=== PATIENT | female | born 1970 | race Caucasian/White ===

== ENCOUNTER 2020-05-07 13:12 | Outpatient (CLI) | payer BC, SELFPAY ==
--- NOTE | 2020-05-07 13:19 | MM_ITS ---
WS: [id number] DIAGNOSTIC BILATERAL DIGITAL MAMMOGRAM WITH CAD HISTORY: LT BREAST CALCIFICATION COMPARISON: 08/10/2018 and 10/05/2017 TECHNIQUE: Bilateral craniocaudad, mediolateral oblique, and mediolateral views are submitted. Magnif ication views LEFT CC and MLO. Computer aided detection utilized. Breast composition: The breasts are heterogeneously dense, which may obscure small masses. Calcificat ions in the posterior central LEFT breast actually decreased in size and number. These may be resolvi ng calcifications. There are no suspicious calcifications within either breast or distortion. MM/[id number] IMPRESSION: BI-RADS: 2-Benign FOLLOW UP: 1 Year Follow-up
== END 2020-05-07 13:13 | disposition home or self-care (01) ==
LOC: RAD 13:16
PROVIDERS: PCP Family Medicine; Visit Provider Nurse Practitioner Family
DX: R92.1 Mammographic calcification found on diagnostic imaging of breast (principal)
CPT/HCPCS: 77066

== ENCOUNTER 2021-11-15 12:37 | Outpatient (CLI) | payer MEDICAID, SELFPAY ==
--- NOTE | 2021-11-15 12:51 | MM_ITS ---
WS: [id number] BILATERAL SCREENING DIGITAL BREAST TOMOSYNTHESIS MAMMOGRAM WITH CAD HISTORY: SCREEN COMPARISON: 05/07/2020, 08/10/2018 and 10/05/2017 Bilateral CC and MLO views with tomosynthesis and synthetic mammography submitted. Computer aided det ection analyzed. Breast composition: The breasts are heterogeneously dense, which may obscure small masses. No suspici ous masses, microcalcifications or architectural distortion. Asymmetries and calcifications. No inter olvin change since 2018. MM/[place] [id number] IMPRESSION: BI-RADS: 2-Benign FOLLOW UP: 1 Year Follow-up
== END 2021-11-15 12:38 | disposition home or self-care (01) ==
PROVIDERS: PCP Family Medicine; Visit Provider Family Medicine
DX: Z12.31 Encounter for screening mammogram for malignant neoplasm of breast (principal)
CPT/HCPCS: 77063; 77067

== ENCOUNTER 2023-01-06 12:56 | Outpatient (CLI) | payer MEDICAID, SELFPAY ==
--- NOTE | 2023-01-06 | MM_ITS ---
WS: [id number] BILATERAL 3D TOMOSYNTHESIS DIGITAL SCREENING MAMMOGRAPHY WITH CAD CLINICAL INFORMATION: SCREENING HISTORY: Screening mammogram. No current complaints. COMPARISON: 2021 TECHNIQUE: Bilateral CC and MLO views. FINDINGS: The breasts are composed of heterogeneous fibroglandular density tissue, which can limit the detectio n of small underlying mass lesions. No suspicious mass, asymmetry, calcifications, or architectural d istortion. No evidence of malignancy. Punctate calcifications LEFT breast. MM/[place] [id number] IMPRESSION: BI-RADS: 2-Benign FOLLOW UP: 1 Year Follow-up Recommend return to annual screening mammography.
== END 2023-01-06 12:57 | disposition home or self-care (01) ==
LOC: MOBLMAM 12:57 → RAD 13:05
PROVIDERS: PCP Family Medicine; Visit Provider Family Medicine
DX: Z12.31 Encounter for screening mammogram for malignant neoplasm of breast (principal)
CPT/HCPCS: 77063; 77067

== ENCOUNTER 2024-10-31 07:53 | Day surgery (SDC) | payer MEDICAID, SELFPAY ==
[2024-10-31] VITALS (8 sets, daily range): BP systolic 108–150; BP diastolic 68–90; PULSE 75–88; RESP 14–18; TEMP 36.1–36.3; O2SAT 95–99; BMI 19.7
--- NOTE | 2024-10-31 07:58 | SC_ITS ---
WS: [id number] C-ARM RADIOGRAPHS CHEST; 2 IMAGES HISTORY: port-a-cath placement COMPARISON: None available. Intraoperative imaging during Port-A-Cath placement. RIGHT subclavian Port-A-Cath identified with tip terminating at the caval atrial junction. SC/C-arm FL for CVA [id number] IMPRESSION: Intraoperative imaging during RIGHT Port-A-Cath placement.
--- NOTE | 2024-10-31 08:13 | P.HPUD_ITS ---
Surgery/Procedure H&P Update DATE OF PROCEDURE: October 31, 2024 DATE H&P PERFORMED: 10/26/24 H&P UPDATE INFORMATION: I have reviewed H&P completed within last 30 days, I have examined patient prior to procedure, No changes to prior documentation, H&P is in [facility] EMR on date indicated and Risks and benefits of the procedure reviewed PLANNED PROCEDURE: Operation Date: 10/31/24 09:30 Proposed Procedures p Portacath Placement 45139, C34.91(Not Applicable) - Fidencio Bello MD
[2024-10-31] MEDS: sodium chloride 0.9% 1,000 ML 30 ML IV (08:25)
[2024-10-31] MEDS: sodium chloride 0.9% 500 ML 999 ML IV (08:28)
--- NOTE | 2024-10-31 09:44 | ANES.PREANE2 ---
Pre-Anesthetic Assessment Height/Weight: Height 1.52 m Weight 45.813 kg Temp Pulse Resp BP Pulse Ox O2 Del Method 97.2 F L 88 18 110/68 99 Room Air 10/31/24 08:07 10/31/24 08:07 10/31/24 08:07 10/31/24 08:07 10/31/24 08:07 10/31/24 08:07 Operation Date: 10/31/24 09:30 Proposed Procedures p Portacath Placement 80334, C34.91(Not Applicable) - Fidencio Bello MD Last intake: Intake Last Liquid Date 10/30/24 Last Liquid Time 23:00 Last Solid Date 10/30/24 Last Solid Time 21:00 Social Tobacco and No alcohol Exam alert, oriented x 3 and regular rate & rhythm scattered b/l exp wheezing with post tussive clearing Airway Submandibular: within normal limits Cervical ROM: within normal limits Mallampati: Class II Pulmonary Chronic Obstructive Pulmonary Disease, Cough, Exertional Dyspnea and Shortness of Breath Right lung CA Anesthetic Plan ASA status: 3 Anesthesia: MAC Medications/Allergies Home Medications ?Medication ?Instructions ?Recorded ?Confirmed ?Last Taken ?Type albuterol sulfate 90 mcg/actuation 1 puff inhalation DAILY 10/24/24 10/31/24 10/31/24 History aerosol inhaler (Ventolin HFA) alprazolam 0.5 mg tablet 0.5 mg PO DAILY 10/24/24 10/31/24 10/31/24 History budesonide-formoterol HFA 160 1 inh inhalation BID 10/24/24 10/31/24 10/31/24 History mcg-4.5 mcg/actuation aerosol inhaler (Symbicort) naloxone 4 mg/actuation nasal 4 mg intranasal PRN PRN OVERDOSE 10/24/24 10/31/24 Unknown History spray (Narcan) omeprazole 40 mg capsule,delayed 40 mg PO DAILY 10/24/24 10/31/24 10/30/24 History release prochlorperazine maleate 10 mg 10 mg PO Q4H PRN mild nausea #30 10/24/24 10/31/24 Unknown Rx tablet (Compazine) tabs tramadol 50 mg tablet 50 mg PO DAILY 10/24/24 10/31/24 10/30/24 History Allergies Allergy/AdvReac Type Severity Reaction Status Date / Time No Known Drug Allergies Allergy Unknown Unknown Verified 10/31/24 08:05 Current Medications Generic Name Dose Route Start Last Admin Trade Name Freq PRN Reason Stop Dose Admin Sodium Chloride 1,000 mls @ 30 mls/hr 10/31/24 06:30 10/31/24 08:25 Sodium Chloride 0.9% IV 11/01/24 06:29 30 mls/hr .Q24H AMINAH Administration PFSH Anesthesia Social History Smoking and tobacco/nicotine status: current every day tobacco/nicotine user
[2024-10-31] MEDS: ceFAZolin 2,000 mg SDV 2000 MG IVP (10:11)
[2024-10-31] MEDS: lidocaine-epi 1% 20 mL INJ 10 ML INJECTION (10:53)
[2024-10-31] MEDS: heparin, porcine 1,000 unit/mL INJ 10 mL 6000 UNIT IRRIGATION (10:55)
[2024-10-31] MEDS: BUPivacaine 0.25% INJ 10 mL INJECTION (10:55)
--- NOTE | 2024-10-31 11:08 | P.OP_ITS ---
Operative Report Date of procedure: October 31, 2024 Pre-op diagnosis: Lung cancer Post-op diagnosis: Same Post-op findings: Normal vascular anatomy on the right neck Procedure done: Insertion of right IJ Port-A-Cath Implants: Bard port a cath Surgeon: Fidencio Bello MD Site Medical Director: BERT[facility] OR Staff Estimated blood loss: 5 Brief History: 4-year-old female with history of lung cancer who requires chemotherapy after discussion we will resume benefits with side to proceed with Port-A-Cath placem ent. Procedure: Patient was brought into the OR, she was placed in a supine position, monitored anesthesia sedation was given. Timeout was conducted after the skin was prepped and draped in the usual sterile fashion. I then proceeded to identify the right IJ vein with ultrasound, I infiltrated local anesthesia on top of the vein. I then proceeded to cannulate the vein under direct ultrasound guidance using an 18-gauge needle, the needle tip was seen entering the vein and immediate return of blood was noted. A wire was advanced through the needle and the needle was removed. The position of the wire was verified with ultrasound and fluoroscopy. The wire was then fixed to the drapes. I then placed my attention to the chest, local anesthesia was infiltrated in the previously marked area on the chest and then a tract connecting the chest to the wire insertion site in the neck. I then proceeded to make a 3.5 cm incision in the right upper chest, the incision was deepened to subcutaneous tissue with electrocautery and electrocautery was used to create the subcutaneous pocket to house the Port-A-Cath. I then proceeded to use a hemostat to create a tunnel from the chest wound to the neck. I then proceeded to make a 0.5 cm incision at the level of the wire insertion site in the neck. Hemostasis was verified. I then placed the Port-A-Cath in the pocket and tunneled the catheter using the provided tunneler. The catheter was cut to appropriate length under fluoroscopy guidance and then flushed. I then proceeded to insert an introducer with a peel-off sheath over the wire under direct fluoroscopic guidance. I then remove the wire and the introducer leaving the peel-off sheath in place. The catheter was then advanced through the peel-off sheath and the peel-off sheath was removed leaving the catheter in place. Fluoroscopy showed evidence of Adequate catheter position. I then proceeded to access the port; the port was retrieving blood and flushing fine, I then hep-locked the catheter. Hemostasis was verified. The wound was closed in layers using #3-0 Vicryl for the subcutaneous tissue and #4 Monocryl for the skin. Dermabond was applied. At the end of the procedure all counts were correct. The patient tolerated well the procedure and was transferred to the PACU in stable condition.
[2024-10-31] MEDS: oxyCODONE 5 mg IR Tab/Cap PO (11:51)
--- NOTE | 2024-10-31 12:37 | ANE.PACU2 ---
Inpatient post-anesthesia follow up: Airway intact: Yes Vital signs: Temperature 97.4 F Pulse Rate 76 Respiratory Rate 18 Blood Pressure 135/81 Pulse Oximetry 96 Oxygen Delivery Me thod Room Air Oxygen Flow Rate Fraction of Inspir ed Oxygen Hydration adequate: Yes Nausea and vomiting: No Pain level: controlled Mental status: Baseline
== END 2024-10-31 12:08 | disposition home or self-care (01) ==
PROVIDERS: PCP Family Medicine; Visit Provider Surgery
PROC: (CPT 36561; principal; 2024-10-31 09:20)
DX: C34.91 Malignant neoplasm of unspecified part of right bronchus or lung (principal); J44.9 Chronic obstructive pulmonary disease, unspecified; F17.200 Nicotine dependence, unspecified, uncomplicated; Z79.899 Other long term (current) drug therapy
CPT/HCPCS: 36561; 76000; 77001; C1788; J0690; J1644; J2250; J2704; J3010; J3490; J7030; J7040; J9999

== ENCOUNTER 2024-11-18 11:09 | Oncology outpatient (recurring) (ONCR) | payer MEDICAID, SELFPAY ==
--- NOTE | 2024-11-02 15:27 | N.ONRAD NP_ITS ---
Radiation Oncology New Patient Visit Patient: Aline Barba MR#: [id number] : 1970 Age: 54 Sex: Female Dictated by: Eduin Ferreira DO/LEANN/BETO Date of Service: 11/02/2024 Referring Physician(s) : DR. 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 STAGE: IIIA-T2N2M0 ICD-10: C34.11, C77.1 Chief Complaint / History of Present Illness: This is a pleasant 54-year-old female who is a longtime smoker but in relatively good health. 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 She noted increasing cough for greater than 8 weeks and was treated with courses of antibiotics with some improvement. Her cough persisted so she underwent CT of the chest on 08/08/2024 which showed no evident lymphadenopathy but proximal RUL bronco occlusive disease in the central region. This most likely was primarily a bronchogenic neoplasm with complete associated postobstructive RUL atelectasis. She underwent EBUS bronchoscopy on 09/09/[address] TEJADA and this showed right mainstem//bronchus intermedius endobronchial mass like lesion as well as abnormal mucosal constricted narrowing. Mass was very back vascular and bleeding profusely. Biopsy returned SCC of 4 as well is endobronchial biopsy positive disease Patient clinically STG IIIa--T2 N2 M0 Current Medications: albuterol sulfate 90 mcg/actuation (Ventolin HFA) inhalation alprazolam mg PO benzonatate mg PO budesonide-formoterol 160-4.5 mcg/actuation (Symbicort) inhalation naloxone 4 mg/actuation (Narcan) intranasal omeprazole mg PO tramadol mg PO Allergies: No Known Drug Allergies Allergy (Unknown, Verified 10/24/24 13:06) Unknown Medical History: No history of collagen vascular disease. No previous radiation therapy. Surgical History: Port on 10/31/24 Family History: Father of lung cancer and had distant colon CA, mother had breast cancer and did not of that disease. Social History: Smoking and tobacco/nicotine status: current every day tobacco/nicotine user. She [place] with her animals and gardens. 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 Current Complaints / Review of Systems: As above Vital Signs: Performed on 11/02/2024 12:39 PM BMI - 19.803 kg/m2, Height - 60 in, Weight - 101.4 lbs, Temperature - 96.9 f, Pulse - 93 /min, Respiration - 17 /min, O2 Sat - 100 %, Pain - 0, Fatigue - 0 and BP - 134/ 89 mm(hg). Physical Exam:AAOX3. HEAD WNL NECK SUPPLE NO LYMPADENOPATHY CHEST: Right-sided port that does not appear infected. LUNGS: No intercostal retraction. Abdomen soft nontender with no hepatosplenomegaly. Extremity: Intact x 4. No clubbing appreciated. Vertebral exam: No bony tenderness Performance Status: KPS 90 Pathology: Primary, c34.11 - malignant neoplasm of upper lobe, right bronchus or lung, Diagnosed 09/09/2024 (active) and Primary, c77.1 - secondary and unspecified malignant neoplasm of intrathoracic lymph nodes, Diagnosed 09/09/2024 (active) . 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 STAGE: IIIA-T2N2M0 ICD-10: C34.11, C77.1 Plan: Discussed options with the patient and answered her questions NCCN guidelines discussed in detail Patient desires combined chemoradiation therapy Patient will undergo CT simulation this date Plan is IMRT to the RUL mass and paratracheal lymph node defined by PET/CT Dose will be approximately 7000 cGy in 35 fractions depending on tissue constraints Signed by: 11/02/2024 3:27:01 PM <<Signature on File>> Time spent with patient: 70 MINUTES CPT Code: CPT Code:
[2024-11-16 10:00] LABS: Basophils # 0.1 10^3/uL (0.0-0.1); Basophils % 0.6 %; Eosinophils # 0.1 10^3/uL (0.0-0.8); Lymphocytes # 2.4 10^3/uL (0.8-4.8); Mean Corpuscular Hemoglobin 32.3 pg (27-33); Mean Corpuscular Volume 97.8 fl (85-98); Mean Platelet Volume 9.1 fL (7.4-10.4); Monocytes % 10.9 %; Neutrophils # 5.55 10^3/uL (1.8-7.7); Neutrophils % 61.1 %; Nucleated Red Blood Cells % 0 %; Platelet Count 311 10^3/cmm (157-399); Red Blood Count 4.09 10^6/uL (3.85-5.65); Red Cell Distribution Width 14.1 % (12.1-15.1); White Blood Count 9.08 10^3/uL (3.29-11.43)
[2024-11-16 10:17] LABS: Alanine Aminotransferase 17 U/L (0-33); Albumin Level 4.1 g/dL (3.5-5.2); Alkaline Phosphatase 141 U/L (35-105); Anion Gap 14.3 (5-19); Aspartate Amino Transferase 27 U/L (0-32); Blood Urea Nitrogen 12 mg/dL (6-20); Calcium 9.1 mg/dL (8.5-10.5); Carbon Dioxide 27 mmol/L (22-29); Chloride 99 mmol/L (98-107); Creatinine Clr Calc Pharmacy 115.3616; Globulin 2.9 g/dL (1.3-4.6); Glomerular Filtration Rate 165.1 mL/min (90-130); Glucose 100 mg/dL (65-115); Osmolality Calculated 282 mOsm/kg (285-295); Potassium 4.3 mmol/L (3.5-5.1); Sodium 136 mmol/L (136-145); Total Bilirubin 0.3 mg/dL (0.15-1.2)
[2024-11-16] MEDS: sodium chloride 0.9% 250 ML 75 ML IV (12:07)
[2024-11-16] MEDS: acetaminophen 325 mg Tablet 650 MG PO (12:09)
[2024-11-16] MEDS: famotidine 20 mg/2 mL INJ IVP (12:10)
[2024-11-16] MEDS: diphenhydrAMINE 50 mg/mL SDV 1mL 25 MG IVP (12:13)
[2024-11-16] MEDS: palonosetron 0.25 mg/5 mL SDV IVP (12:18)
[2024-11-16] MEDS: dexamethasone 20 MG in sodium chloride 0.9% 50 ML 188 MG IV (12:22)
[2024-11-16] MEDS: PACLitaxeL 70 MG in sodium chloride 0.9%(non-DEHP) 250 ML 261.67 MG IV (13:04)
[2024-11-16] MEDS: CARBOplatin 290 MG in sodium chloride 0.9% 500 ML 529 MG IV (14:16)
[2024-11-16 15:27] VITALS: BP 127/72; PULSE 91; RESP 20; TEMP 36.4; O2SAT 94
== END 2024-11-18 23:59 | disposition home or self-care (01) ==
PROVIDERS: Nurse Practitioner Family; PCP Family Medicine; Visit Provider Radiology Radiation Oncology
DX: Z51.0 Encounter for antineoplastic radiation therapy (principal); C34.11 Malignant neoplasm of upper lobe, right bronchus or lung; C77.1 Secondary and unspecified malignant neoplasm of intrathoracic lymph nodes
CPT/HCPCS: 77300; 77301; 77334; 77338; 77386; 77470; 80053; 85025; 96367; 96375; 96413; 96417; J1100; J1200; J2469; J3490; J7040; J7050; J9045; J9267; J9999

== ENCOUNTER 2024-12-08 11:06 | Oncology outpatient (recurring) (ONCR) | payer MEDICAID, SELFPAY ==
[2024-11-22 08:43] LABS: Basophils # 0.1 10^3/uL (0.0-0.1); Basophils % 0.7 %; Eosinophils # 0.1 10^3/uL (0.0-0.8); Hematocrit 36.7 % (36-47); Lymphocytes # 1.2 10^3/uL (0.8-4.8); Lymphocytes % 17.2 %; Mean Corpuscular HGB Conc 33.5 g/dL (30-55); Mean Corpuscular Hemoglobin 32.4 pg (27-33); Mean Corpuscular Volume 96.6 fl (85-98); Monocytes # 0.7 10^3/uL (0.2-0.9); Monocytes % 9.1 %; Neutrophils # 5.07 10^3/uL (1.8-7.7); Neutrophils % 70.6 %; Nucleated Red Blood Cells % 0 %; Platelet Count 308 10^3/cmm (157-399); Red Cell Distribution Width 13.6 % (12.1-15.1); White Blood Count 7.17 10^3/uL (3.29-11.43)
[2024-11-22 08:59] LABS: Alanine Aminotransferase 13 U/L (0-33); Alkaline Phosphatase 121 U/L (35-105); Anion Gap 14.3 (5-19); Aspartate Amino Transferase 26 U/L (0-32); Blood Urea Nitrogen 8 mg/dL (6-20); Calcium 8.5 mg/dL (8.5-10.5); Carbon Dioxide 26 mmol/L (22-29); Chloride 96 mmol/L (98-107); Creatinine Clr Calc Pharmacy 115.3616; Globulin 3.1 g/dL (1.3-4.6); Glomerular Filtration Rate 165.1 mL/min (90-130); Glucose 147 mg/dL (65-115); Osmolality Calculated 275 mOsm/kg (285-295); Potassium 4.3 mmol/L (3.5-5.1); Sodium 132 mmol/L (136-145); Total Bilirubin 0.5 mg/dL (0.15-1.2); Total Protein 7.1 g/dL (6.6-8.7)
--- NOTE | 2024-11-22 09:55 | ONCRAD TMN_ITS ---
Radiation Oncology Weekly Treatment Management Patient: Aline Barba MR#: [id number] : 1970 Attending Physician: Gregorio Ferreira Date of Service: 11/22/2024 Referring Physician(s) : Diagnosis: C34.11 - Malignant neoplasm of upper lobe, right bronchus or lung, Diagnosed 09/09/2024 (Active) C77.1 - Secondary and unspecified malignant neoplasm of intrathoracic lymph nodes, Diagnosed 09/09/2024 (Active) Radiotherapy to date: Course: Lung 2024, Treatment Site: Lung R 2024, Ref. ID: [id number], Energy: 6X, Dose/Fx (cGy): 200, #Fx: 5 / 35, Dose Correction (cGy): 0, Total Dose Delivered (cGy): 1,000, Start Date: 11/16/2024, Elapsed Days: 6 Reason for visit: The patient is being seen today as part of their regularly scheduled weekly on treatment visits to assess for acute toxicities from radiotherapy. Review of Systems: No voice complaints. Had chemo last week without difficulty. Labs adequate on draw. Vital Signs: Performed on 11/22/2024 9:21 AM BMI - 20.702 kg/m2, Height - 60 in, Weight - 106 lbs, Temperature - 98.7 f, Pulse - 100 /min, Respiration - 17 /min, O2 Sat - 95 % (low), Pain - 2, Fatigue - 0 and BP - 126/ 74 mm(hg). Physical Exam: AAOx3. Skin intact. No intercostal retraction Imaging: Radiation therapy imaging related to accurate target localization (i.e. KV, MV and CBCT) was reviewed. Appropriate changes, if any, were made to ensure treatment accuracy. Plan: Continue chemotherapy Continue XRT Signed by: Gregorio Ferreira 11/22/2024 9:54:12 AM
[2024-11-22] MEDS: acetaminophen 325 mg Tablet 650 MG PO (10:35)
[2024-11-22] MEDS: dexamethasone 20 MG in sodium chloride 0.9% 50 ML 188 MG IV (10:35)
[2024-11-22] MEDS: famotidine 20 mg/2 mL INJ IVP (10:36)
[2024-11-22] MEDS: diphenhydrAMINE 50 mg/mL SDV 1mL 25 MG IVP (10:36)
[2024-11-22] MEDS: palonosetron 0.25 mg/5 mL SDV IVP (10:36)
[2024-11-22] MEDS: sodium chloride 0.9% 250 ML 75 ML IV (10:47)
[2024-11-22] MEDS: PACLitaxeL 70 MG in sodium chloride 0.9%(non-DEHP) 250 ML 261.67 MG IV (11:11)
[2024-11-22] MEDS: CARBOplatin 290 MG in sodium chloride 0.9% 500 ML 529 MG IV (12:22)
[2024-11-22 14:00] VITALS: BP 114/77; PULSE 91; RESP 16; TEMP 36.4; O2SAT 96
[2024-11-29 09:47] LABS: Basophils % 0.5 %; Eosinophils % 0.7 %; Hematocrit 34.3 % (36-47); Lymphocytes # 0.6 10^3/uL (0.8-4.8); Lymphocytes % 14.8 %; Mean Corpuscular HGB Conc 33.2 g/dL (30-55); Mean Corpuscular Hemoglobin 32.7 pg (27-33); Mean Corpuscular Volume 98.3 fl (85-98); Mean Platelet Volume 9.4 fL (7.4-10.4); Monocytes # 0.6 10^3/uL (0.2-0.9); Monocytes % 13.2 %; Neutrophils # 2.94 10^3/uL (1.8-7.7); Neutrophils % 70.3 %; Nucleated Red Blood Cells % 0 %; Platelet Count 239 10^3/cmm (157-399); Red Blood Count 3.49 10^6/uL (3.85-5.65); Red Cell Distribution Width 13.4 % (12.1-15.1); White Blood Count 4.18 10^3/uL (3.29-11.43)
[2024-11-29 10:03] LABS: Alanine Aminotransferase 15 U/L (0-33); Albumin Level 3.8 g/dL (3.5-5.2); Alkaline Phosphatase 120 U/L (35-105); Anion Gap 14.9 (5-19); Aspartate Amino Transferase 19 U/L (0-32); Blood Urea Nitrogen 9 mg/dL (6-20); Calcium 8.8 mg/dL (8.5-10.5); Carbon Dioxide 25 mmol/L (22-29); Chloride 100 mmol/L (98-107); Creatinine Clr Calc Pharmacy 153.8154; Globulin 2.5 g/dL (1.3-4.6); Glomerular Filtration Rate 230.1 mL/min (90-130); Glucose 109 mg/dL (65-115); Osmolality Calculated 281 mOsm/kg (285-295); Potassium 3.9 mmol/L (3.5-5.1); Sodium 136 mmol/L (136-145); Total Protein 6.3 g/dL (6.6-8.7)
[2024-11-29 10:23] LABS: Total Bilirubin 0.2 mg/dL (0.15-1.2)
[2024-11-29] MEDS: diphenhydrAMINE 50 mg/mL SDV 1mL 25 MG IVP ×2 (11:26→13:29)
[2024-11-29] MEDS: acetaminophen 325 mg Tablet 650 MG PO (11:26)
[2024-11-29] MEDS: sodium chloride 0.9% 250 ML 75 ML IV ×2 (11:26→14:21)
[2024-11-29] MEDS: famotidine 20 mg/2 mL INJ IVP (11:27)
[2024-11-29] MEDS: palonosetron 0.25 mg/5 mL SDV IVP (11:28)
[2024-11-29] MEDS: dexamethasone 20 MG in sodium chloride 0.9% 50 ML 175 MG IV (11:29)
[2024-11-29] MEDS: PACLitaxeL 70 MG in sodium chloride 0.9%(non-DEHP) 250 ML 261.67 MG IV (12:27)
[2024-11-29] MEDS: ipratropium-albuterol 3 mL Neb INHALATION (13:39)
--- NOTE | 2024-11-29 13:59 | PC.NURSE ---
Patient alerted nursing staff of shortness of breath and difficulty breathing around 13:26 during her Paclitaxel infusion. Emergency reaction response was initiated. Pacletaxel was stopped, Normal Saline was started at 200ml/hr. Patient was given 25mg of Diphehydramine at 13:29 by staff and Hattie Watt NP was notified. Hattie arrived at 13:39 where a Duoneb and 2L of oxygen via nasal canula was initiated. At 13:41 - 40mg of Solu-Medrol was given. Patient began to breathe easier and Dr. Tinoco was notified of the reaction. Dr. Tinoco has directed to stop Pacletaxel for now, save the remaining 30ml; Wait 25minutes to begin her scheduled Carboplatin infusion. If tolerated well, after the Carboplatin infusion is complete, proceed to give the remaining Pacletaxel.
[2024-11-29 14:14] VITALS: BP 95/63; PULSE 92; RESP 18; TEMP 36.5; O2SAT 93
[2024-11-29] MEDS: CARBOplatin 300 MG in sodium chloride 0.9% 500 ML 530 MG IV (14:22)
--- NOTE | 2024-11-29 15:12 | PC.NURSE ---
Patient has stated she will refuse the remaining Paclitaxel for the day and just wait for her next treatment dose.
[2024-11-29 15:58] VITALS: BP 112/68; PULSE 108; RESP 18; TEMP 36.8; O2SAT 93
[2024-11-29] MEDS: methylPREDNISolone sod succ 40 mg/mL INJ IVP (16:03)
[2024-12-06 10:06] LABS: Basophils % 0.5 %; Eosinophils % 0.3 %; Hematocrit 33.1 % (36-47); Lymphocytes # 0.8 10^3/uL (0.8-4.8); Lymphocytes % 20.7 %; Mean Corpuscular HGB Conc 33.8 g/dL (30-55); Mean Corpuscular Hemoglobin 33.9 pg (27-33); Mean Corpuscular Volume 100.3 fl (85-98); Mean Platelet Volume 8.8 fL (7.4-10.4); Monocytes # 0.4 10^3/uL (0.2-0.9); Monocytes % 10.7 %; Neutrophils # 2.63 10^3/uL (1.8-7.7); Neutrophils % 67.3 %; Nucleated Red Blood Cells % 0 %; Platelet Count 159 10^3/cmm (157-399); Red Cell Distribution Width 13.7 % (12.1-15.1); White Blood Count 3.91 10^3/uL (3.29-11.43)
[2024-12-06 10:20] LABS: Alanine Aminotransferase 16 U/L (0-33); Albumin Level 3.8 g/dL (3.5-5.2); Alkaline Phosphatase 123 U/L (35-105); Anion Gap 13.2 (5-19); Aspartate Amino Transferase 26 U/L (0-32); Blood Urea Nitrogen 8 mg/dL (6-20); Calcium 8.9 mg/dL (8.5-10.5); Carbon Dioxide 26 mmol/L (22-29); Chloride 103 mmol/L (98-107); Creatinine Clr Calc Pharmacy 115.8257; Globulin 2.7 g/dL (1.3-4.6); Glomerular Filtration Rate 165.1 mL/min (90-130); Glucose 107 mg/dL (65-115); Osmolality Calculated 285 mOsm/kg (285-295); Potassium 4.2 mmol/L (3.5-5.1); Sodium 138 mmol/L (136-145); Total Protein 6.5 g/dL (6.6-8.7)
[2024-12-06 11:37] LABS: Total Bilirubin 0.2 mg/dL (0.15-1.2)
[2024-12-06] MEDS: acetaminophen 325 mg Tablet 650 MG PO (11:38)
[2024-12-06] MEDS: sodium chloride 0.9% 250 ML 75 ML IV (11:40)
[2024-12-06] MEDS: diphenhydrAMINE 50 mg/mL SDV 1mL 25 MG IVP (11:48)
[2024-12-06] MEDS: famotidine 20 mg/2 mL INJ IVP (11:48)
[2024-12-06] MEDS: palonosetron 0.25 mg/5 mL SDV IVP (11:51)
[2024-12-06] MEDS: dexamethasone 20 MG in sodium chloride 0.9% 50 ML 188 MG IV (11:59)
[2024-12-06] MEDS: PACLitaxeL 70 MG in sodium chloride 0.9%(non-DEHP) 250 ML 261.67 MG IV (12:41)
[2024-12-06] MEDS: CARBOplatin 290 MG in sodium chloride 0.9% 500 ML 529 MG IV (14:11)
[2024-12-06 15:21] VITALS: BP 145/89; PULSE 88; RESP 16; TEMP 36.6; O2SAT 98
== END 2024-12-08 16:37 | disposition home or self-care (01) ==
PROVIDERS: Nurse Practitioner Family; PCP Family Medicine; Visit Provider Radiology Radiation Oncology
DX: Z51.0 Encounter for antineoplastic radiation therapy (principal); C34.11 Malignant neoplasm of upper lobe, right bronchus or lung; C77.1 Secondary and unspecified malignant neoplasm of intrathoracic lymph nodes
CPT/HCPCS: 77336; 77386; 80053; 85025; 96366; 96367; 96368; 96375; 96413; 96415; 96417; J1100; J1200; J2469; J2919; J3490; J7040; J7050; J9045; J9267; J9999

== ENCOUNTER 2024-12-16 11:05 | Oncology outpatient (recurring) (ONCR) | payer MEDICAID, SELFPAY ==
[2024-12-12 08:55] LABS: Basophils % 0.5 %; Hematocrit 32.4 % (36-47); Lymphocytes # 0.6 10^3/uL (0.8-4.8); Lymphocytes % 30.5 %; Mean Corpuscular HGB Conc 34.3 g/dL (30-55); Mean Corpuscular Hemoglobin 33.5 pg (27-33); Mean Corpuscular Volume 97.9 fl (85-98); Mean Platelet Volume 9.9 fL (7.4-10.4); Monocytes # 0.1 10^3/uL (0.2-0.9); Neutrophils # 1.21 10^3/uL (1.8-7.7); Neutrophils % 60.5 %; Nucleated Red Blood Cells % 0 %; Platelet Count 53 10^3/cmm (157-399); Red Blood Count 3.31 10^6/uL (3.85-5.65); Red Cell Distribution Width 13.6 % (12.1-15.1)
[2024-12-12 09:13] LABS: Alanine Aminotransferase 14 U/L (0-33); Albumin Level 3.8 g/dL (3.5-5.2); Alkaline Phosphatase 123 U/L (35-105); Anion Gap 12.8 (5-19); Aspartate Amino Transferase 21 U/L (0-32); Blood Urea Nitrogen 9 mg/dL (6-20); Carbon Dioxide 27 mmol/L (22-29); Chloride 98 mmol/L (98-107); Creatinine Clr Calc Pharmacy 115.8257; Globulin 2.7 g/dL (1.3-4.6); Glomerular Filtration Rate 165.1 mL/min (90-130); Glucose 123 mg/dL (65-115); Osmolality Calculated 278 mOsm/kg (285-295); Potassium 3.8 mmol/L (3.5-5.1); Sodium 134 mmol/L (136-145); Total Bilirubin 0.3 mg/dL (0.15-1.2); Total Protein 6.5 g/dL (6.6-8.7)
[2024-12-12 09:22] LABS: Slide Review Slide Review Perform
[2024-12-15 12:32] LABS: Basophils % 0.5 %; Eosinophils % 1.5 %; Hematocrit 31.2 % (36-47); Lymphocytes # 0.5 10^3/uL (0.8-4.8); Lymphocytes % 26.2 %; Mean Corpuscular Hemoglobin 33.2 pg (27-33); Mean Corpuscular Volume 97.8 fl (85-98); Mean Platelet Volume 10.7 fL (7.4-10.4); Monocytes # 0.1 10^3/uL (0.2-0.9); Monocytes % 5.9 %; Neutrophils # 1.33 10^3/uL (1.8-7.7); Neutrophils % 65.9 %; Nucleated Red Blood Cells % 0 %; Platelet Count 48 10^3/cmm (157-399); Red Blood Count 3.19 10^6/uL (3.85-5.65); Red Cell Distribution Width 13.5 % (12.1-15.1); White Blood Count 2.02 10^3/uL (3.29-11.43)
--- NOTE | 2024-12-15 12:46 | ONCRAD TMN_ITS ---
Radiation Oncology Weekly Treatment Management Patient: Aline Barba MR#: [id number] : 1970 Attending Physician: Gregorio Ferreira Date of Service: 12/15/2024 Referring Physician(s) : Diagnosis: C34.11 - Malignant neoplasm of upper lobe, right bronchus or lung, Diagnosed 09/09/2024 (Active) C77.1 - Secondary and unspecified malignant neoplasm of intrathoracic lymph nodes, Diagnosed 09/09/2024 (Active) Radiotherapy to date: Course: Lung 2024, Treatment Site: Lung R 2024, Ref. ID: [id number], Energy: 6X, Dose/Fx (cGy): 200, #Fx: 22 / 35, Dose Correction (cGy): 0, Total Dose Delivered (cGy): 4,400, Start Date: 11/16/2024, Elapsed Days: 29 Reason for visit: The patient is being seen today as part of their regularly scheduled weekly on treatment visits to assess for acute toxicities from radiotherapy. Review of Systems: Came for an unscheduled appointment this day. She complains of some mild hemoptysis. Platelets Thursday were 53K. New CBC today showed platelets of 48,000. We will discharge her and ask her to use MMW more liberally. Vital Signs: Performed on 12/15/2024 11:30 AM BMI - 20.624 kg/m2, Height - 60 in, Weight - 105.6 lbs, Temperature - 97.2 f, Pulse - 108 /min (high), Respiration - 16 /min, O2 Sat - 99 %, Pain - 0, Fatigue - 0 and BP - 106/ 73 mm(hg). Physical Exam: Imaging: Radiation therapy imaging related to accurate target localization (i.e. KV, MV and CBCT) was reviewed. Appropriate changes, if any, were made to ensure treatment accuracy. Plan: Continue XRT Use MMW more liberally. Okay to discharge with platelet count at 48,000. Signed by: Gregorio Ferreira 12/15/2024 12:45:01 PM
== END 2024-12-19 23:59 | disposition home or self-care (01) ==
PROVIDERS: Nurse Practitioner Family; PCP Family Medicine; Visit Provider Radiology Radiation Oncology
DX: Z51.0 Encounter for antineoplastic radiation therapy (principal); C34.11 Malignant neoplasm of upper lobe, right bronchus or lung; C77.1 Secondary and unspecified malignant neoplasm of intrathoracic lymph nodes
CPT/HCPCS: 36591; 77336; 77386; 80053; 85025

== ENCOUNTER 2025-01-05 11:05 | Oncology outpatient (recurring) (ONCR) | payer MEDICAID, SELFPAY ==
[2024-12-20 09:45] LABS: Hematocrit 30.9 % (36-47); Hemoglobin 10.90 g/dL (11.27-16.99); Mean Corpuscular HGB Conc 35.3 g/dL (30-55); Mean Corpuscular Hemoglobin 34.4 pg (27-33); Mean Corpuscular Volume 97.5 fl (85-98); Nucleated Red Blood Cells % 0 %; Platelet Count 66 10^3/cmm (157-399); Red Blood Count 3.17 10^6/uL (3.85-5.65); White Blood Count 1.69 10^3/uL (3.29-11.43)
[2024-12-20 10:04] LABS: Alanine Aminotransferase 10 U/L (0-33); Albumin Level 4.0 g/dL (3.5-5.2); Alkaline Phosphatase 121 U/L (35-105); Anion Gap 15.7 (5-19); Aspartate Amino Transferase 17 U/L (0-32); Blood Urea Nitrogen 17 mg/dL (6-20); Calcium 9.4 mg/dL (8.5-10.5); Carbon Dioxide 26 mmol/L (22-29); Chloride 102 mmol/L (98-107); Creatinine Clr Calc Pharmacy 114.4621; Globulin 2.8 g/dL (1.3-4.6); Glucose 118 mg/dL (65-115); Osmolality Calculated 293 mOsm/kg (285-295); Potassium 3.7 mmol/L (3.5-5.1); Sodium 140 mmol/L (136-145); Total Protein 6.8 g/dL (6.6-8.7)
--- NOTE | 2024-12-20 10:48 | ONCRAD TMN_ITS ---
Radiation Oncology Weekly Treatment Management Patient: Aline Barba MR#: [id number] : 1970 Attending Physician: Gregorio Ferreira Date of Service: 12/20/2024 Referring Physician(s) : Diagnosis: C34.11 - Malignant neoplasm of upper lobe, right bronchus or lung, Diagnosed 09/09/2024 (Active) C77.1 - Secondary and unspecified malignant neoplasm of intrathoracic lymph nodes, Diagnosed 09/09/2024 (Active) Radiotherapy to date: Course: Lung 2024, Treatment Site: Lung R 2024, Ref. ID: [id number], Energy: 6X, Dose/Fx (cGy): 200, #Fx: 24 / 35, Dose Correction (cGy): 0, Total Dose Delivered (cGy): 4,800, Start Date: 11/16/2024, Elapsed Days: 34 Reason for visit: The patient is being seen today as part of their regularly scheduled weekly on treatment visits to assess for acute toxicities from radiotherapy. Review of Systems: Labs critical in no chemotherapy today. Platelet count of 66,000 and absolute neutrophils of 0.82 we will recheck labs on 12/26/2024. Patient complains of severe esophagitis and Dr. Tinoco started her on Carafate slurry. He is also giving her pain medicine as she states its 9 on a 10 point scale. Patient has lost 2 pounds since last visit Vital Signs: Performed on 12/20/2024 10:17 AM BMI - 20.311 kg/m2, Height - 60 in, Weight - 104 lbs, Temperature - 98.7 f, Pulse - 110 /min (high), Respiration - 17 /min, O2 Sat - 99 %, Pain - 8 and BP - 106/ 74 mm(hg). Physical Exam: AAOx3. Skin intact. Poor hydration. Imaging: Radiation therapy imaging related to accurate target localization (i.e. KV, MV and CBCT) was reviewed. Appropriate changes, if any, were made to ensure treatment accuracy. Plan: Increase hydration Increase calorie count No chemotherapy this week CBC on 12/26/[address] Christian reviewed prior to XRT Continue XRT Signed by: Gregorio Ferreira 12/20/2024 10:47:12 AM
[2024-12-26 10:29] LABS: Hematocrit 28.0 % (36-47); Hemoglobin 9.50 g/dL (11.27-16.99); Mean Corpuscular HGB Conc 33.9 g/dL (30-55); Mean Corpuscular Hemoglobin 33.9 pg (27-33); Mean Corpuscular Volume 100.0 fl (85-98); Nucleated Red Blood Cells % 0 %; Platelet Count 176 10^3/cmm (157-399); Red Blood Count 2.80 10^6/uL (3.85-5.65); White Blood Count 2.38 10^3/uL (3.29-11.43)
[2024-12-26 10:50] LABS: Alanine Aminotransferase 13 U/L (0-33); Albumin Level 3.8 g/dL (3.5-5.2); Alkaline Phosphatase 109 U/L (35-105); Anion Gap 13.0 (5-19); Aspartate Amino Transferase 21 U/L (0-32); Blood Urea Nitrogen 12 mg/dL (6-20); Calcium 9.0 mg/dL (8.5-10.5); Carbon Dioxide 26 mmol/L (22-29); Chloride 101 mmol/L (98-107); Creatinine Clr Calc Pharmacy 114.4621; Globulin 2.8 g/dL (1.3-4.6); Glucose 101 mg/dL (65-115); Osmolality Calculated 282 mOsm/kg (285-295); Potassium 4.0 mmol/L (3.5-5.1); Sodium 136 mmol/L (136-145); Total Protein 6.6 g/dL (6.6-8.7)
[2024-12-27] MEDS: diphenhydrAMINE 50 mg/mL SDV 1mL 25 MG IVP (10:52)
[2024-12-27] MEDS: PACLitaxeL 70 MG in sodium chloride 0.9%(non-DEHP) 250 ML 261.67 MG IV (11:44)
--- NOTE | 2024-12-27 12:30 | ONCRAD TMN_ITS ---
Radiation Oncology Weekly Treatment Management Patient: Aline Barba MR#: [id number] : 1970 Attending Physician: Dr. Rajeev Christian Date of Service: 12/27/2024 Referring Physician(s) : Diagnosis: C34.11 - Malignant neoplasm of upper lobe, right bronchus or lung, Diagnosed 09/09/2024 (Active) C77.1 - Secondary and unspecified malignant neoplasm of intrathoracic lymph nodes, Diagnosed 09/09/2024 (Active) Radiotherapy to date: Course: Lung 2024, Treatment Site: Lung R 2024, Ref. ID: [id number], Energy: 6X, Dose/Fx (cGy): 200, #Fx: 27 / 35, Dose Correction (cGy): 0, Total Dose Delivered (cGy): 5,400, Start Date: 11/16/2024, Elapsed Days: 40 Reason for visit: The patient is being seen today as part of their regularly scheduled weekly on treatment visits to assess for acute toxicities from radiotherapy. Review of Systems: CBC now improved and able to resume chemo. Sore throat that doesn???t respond well to magic mouth. Now Carafate added. Pain meds and patch help. Coughing a lot with less hemoptysis. Still smoking from 4 to 5 to 10 cigarettes a day. Vital Signs: Performed on 12/27/2024 11:03 AM BMI - 20.311 kg/m2, Height - 60 in, Weight - 104 lbs, Temperature - 98.7 f, Pulse - 75 /min, Respiration - 17 /min, O2 Sat - 99 %, Pain - 4, Fatigue - 0 and BP - 124/ 82 mm(hg). Physical Exam: omitted. Imaging: Radiation therapy imaging related to accurate target localization (i.e. KV, MV and CBCT) was reviewed. Appropriate changes, if any, were made to ensure treatment accuracy. Plan: Good tolerance of treatment. Discussed need for smoking cessation. Continue treatment as planned. Signed by: Dr. Rajeev Christian 12/27/2024 12:28:16 PM
[2024-12-27] MEDS: CARBOplatin 210 MG in sodium chloride 0.9% 500 ML 521 MG IV (13:00)
[2024-12-27 14:24] VITALS: BP 120/84; PULSE 72; RESP 17; TEMP 36.8; O2SAT 97
[2025-01-02 11:22] LABS: Hematocrit 30.9 % (36-47); Hemoglobin 10.40 g/dL (11.27-16.99); Mean Corpuscular HGB Conc 33.7 g/dL (30-55); Mean Corpuscular Hemoglobin 33.2 pg (27-33); Mean Corpuscular Volume 98.7 fl (85-98); Nucleated Red Blood Cells % 0 %; Platelet Count 366 10^3/cmm (157-399); Red Blood Count 3.13 10^6/uL (3.85-5.65); White Blood Count 4.44 10^3/uL (3.29-11.43)
[2025-01-02 11:41] LABS: Alanine Aminotransferase 15 U/L (0-33); Albumin Level 3.8 g/dL (3.5-5.2); Alkaline Phosphatase 99 U/L (35-105); Anion Gap 14.9 (5-19); Aspartate Amino Transferase 20 U/L (0-32); Blood Urea Nitrogen 8 mg/dL (6-20); Calcium 9.3 mg/dL (8.5-10.5); Carbon Dioxide 25 mmol/L (22-29); Chloride 104 mmol/L (98-107); Creatinine Clr Calc Pharmacy 114.4621; Globulin 2.9 g/dL (1.3-4.6); Glucose 117 mg/dL (65-115); Osmolality Calculated 289 mOsm/kg (285-295); Potassium 3.9 mmol/L (3.5-5.1); Sodium 140 mmol/L (136-145); Total Protein 6.7 g/dL (6.6-8.7)
[2025-01-03] MEDS: diphenhydrAMINE 50 mg/mL SDV 1mL 25 MG IVP (09:09)
--- NOTE | 2025-01-03 10:13 | ONCRAD TMN_ITS ---
Radiation Oncology Weekly Treatment Management Patient: Aline Barba MR#: [id number] : 1970 Attending Physician: Dr. Rajeev Christian Date of Service: 01/03/2025 Referring Physician(s) : Diagnosis: C34.11 - Malignant neoplasm of upper lobe, right bronchus or lung, Diagnosed 09/09/2024 (Active) C77.1 - Secondary and unspecified malignant neoplasm of intrathoracic lymph nodes, Diagnosed 09/09/2024 (Active) Radiotherapy to date: Course: Lung 2024, Treatment Site: Lung R 2024, Ref. ID: [id number], Energy: 6X, Dose/Fx (cGy): 200, #Fx: 33 / 35, Dose Correction (cGy): 0, Total Dose Delivered (cGy): 6,600, Start Date: 11/16/2024, Elapsed Days: 48 Reason for visit: The patient is being seen today as part of their regularly scheduled weekly on treatment visits to assess for acute toxicities from radiotherapy. Review of Systems: Last chemo is today. Painful burning dysphagia nearly resolved. Eating better and eating solid foods. Smoking 4 to5 cigs a day with self imposed quit date of 01/20/2025. Planning on monthly immunotherapy following completion of initial chemo radiation. Vital Signs: Performed on 01/03/2025 9:31 AM BMI - 20.311 kg/m2, Height - 60 in, Weight - 104 lbs, Temperature - 97.6 f, Pulse - 92 /min, Respiration - 17 /min, O2 Sat - 99 %, Pain - 3, Fatigue - 0 and BP - 113/ 74 mm(hg). Physical Exam: omitted Imaging: Radiation therapy imaging related to accurate target localization (i.e. KV, MV and CBCT) was reviewed. Appropriate changes, if any, were made to ensure treatment accuracy. Plan: Good tolerance of treatment. Continue as planned. Signed by: Dr. Rajeev Christian 01/03/2025 10:11:52 AM
[2025-01-03] MEDS: PACLitaxeL 70 MG in sodium chloride 0.9%(non-DEHP) 250 ML 261.67 MG IV (10:20)
[2025-01-03] MEDS: CARBOplatin 210 MG in sodium chloride 0.9% 500 ML 521 MG IV (11:38)
[2025-01-03 13:00] VITALS: BP 114/73; PULSE 96; RESP 16; TEMP 36.6; O2SAT 98
--- NOTE | 2025-01-06 10:05 | N.ONRD TS_ITS ---
Radiation Oncology Treatment Summary Patient: Aline Barba MR#: [id number] : 1970 Age: 54 Sex: Female Dictated by: Dr. Rajeev Christian Date of Service: 01/05/2025 Referring Physician(s) : Diagnosis: C34.11 - Malignant neoplasm of upper lobe, right bronchus or lung, Diagnosed 09/09/2024 (Active) C77.1 - Secondary and unspecified malignant neoplasm of intrathoracic lymph nodes, Diagnosed 09/09/2024 (Active) Radiotherapy to Date: Course: Lung 2024, Treatment Site: Lung R 2024, Ref. ID: [id number], Energy: 6X, Dose/Fx (cGy): 200, #Fx: 35 / 35, Dose Correction (cGy): 0, Total Dose Delivered (cGy): 7,000, Start Date: 11/16/2024, End Date: 01/05/2025, Elapsed Days: 50 Clinical Summary: The patient tolerated RT well. Plan: End of treatment today. Follow up in one month. Signed by: Dr. Rajeev Christian>01/06/2025 10:04:08 AM <<Signature on File>>
== END 2025-01-05 23:59 | disposition home or self-care (01) ==
PROVIDERS: Internal Medicine Medical Oncology; Nurse Practitioner Family; PCP Family Medicine; Visit Provider Radiology Radiation Oncology
DX: Z51.0 Encounter for antineoplastic radiation therapy (principal); C34.11 Malignant neoplasm of upper lobe, right bronchus or lung; C77.1 Secondary and unspecified malignant neoplasm of intrathoracic lymph nodes
CPT/HCPCS: 36591; 77336; 77386; 80053; 85025; 96367; 96375; 96411; 96413; 96417; 99024; J1100; J1200; J2469; J3490; J7040; J7050; J9045; J9267; J9999

== ENCOUNTER 2025-01-31 08:46 | Oncology outpatient (recurring) (ONCR) | payer MEDICAID, SELFPAY ==
[2025-01-31 09:12] LABS: Hematocrit 27.8 % (36-47); Hemoglobin 9.40 g/dL (11.27-16.99); Mean Corpuscular HGB Conc 33.8 g/dL (30-55); Mean Corpuscular Hemoglobin 36.0 pg (27-33); Mean Corpuscular Volume 106.5 fl (85-98); Nucleated Red Blood Cells % 0 %; Platelet Count 105 10^3/cmm (157-399); Red Blood Count 2.61 10^6/uL (3.85-5.65); White Blood Count 4.57 10^3/uL (3.29-11.43)
[2025-01-31 09:36] LABS: Alanine Aminotransferase 10 U/L (0-33); Albumin Level 4.0 g/dL (3.5-5.2); Alkaline Phosphatase 118 U/L (35-105); Anion Gap 13.9 (5-19); Aspartate Amino Transferase 24 U/L (0-32); Blood Urea Nitrogen 7 mg/dL (6-20); Calcium 9.0 mg/dL (8.5-10.5); Carbon Dioxide 23 mmol/L (22-29); Chloride 102 mmol/L (98-107); Creatinine Clr Calc Pharmacy 91.2206; Globulin 2.8 g/dL (1.3-4.6); Glucose 123 mg/dL (65-115); Osmolality Calculated 279 mOsm/kg (285-295); Potassium 3.9 mmol/L (3.5-5.1); Sodium 135 mmol/L (136-145); Thyroid Stimulating Hormone 4.56 uIU/mL (0.27-4.20); Total Protein 6.8 g/dL (6.6-8.7)
[2025-01-31 10:59] VITALS: BP 83/53; PULSE 91; RESP 17; TEMP 36.3; O2SAT 96
[2025-01-31 11:01] LABS: Ferritin 380 ng/mL (15-150); Iron 132 ug/dL (37-145); Total Iron Binding Capacity 292 mcg/dl; Unsaturated Iron Binding 160 ug/dL (112-347)
[2025-01-31 11:09] LABS: Free T4 Free Thyroxine 1.18 ng/dL (0.82-1.77)
[2025-01-31 11:17] LABS: Vitamin B12 677 pg/mL (232-1245)
[2025-01-31 11:31] VITALS: BP 86/62; PULSE 92; RESP 17; O2SAT 97
[2025-01-31] MEDS: durvalumab 1,500 MG in sodium chloride 0.9% 250 ML 280 MG IV (12:40)
[2025-01-31 13:57] VITALS: BP 106/67; PULSE 83; RESP 18; TEMP 36.6; O2SAT 99
[2025-01-31 13:59] VITALS: BP 106/67; PULSE 84; RESP 17; TEMP 36.6; O2SAT 99
== END 2025-01-31 23:59 | disposition home or self-care (01) ==
PROVIDERS: Internal Medicine Medical Oncology; Nurse Practitioner Family; PCP Family Medicine; Visit Provider Radiology Radiation Oncology
DX: Z51.12 Encounter for antineoplastic immunotherapy (principal); C34.91 Malignant neoplasm of unspecified part of right bronchus or lung; R03.0 Elevated blood-pressure reading, without diagnosis of hypertension; F17.210 Nicotine dependence, cigarettes, uncomplicated; D61.818 Other pancytopenia; F32.A Depression, unspecified; D64.9 Anemia, unspecified
CPT/HCPCS: 80053; 82607; 82728; 82746; 83540; 83550; 84439; 84443; 84481; 85025; 96361; 96413; A4222; J7040; J7050; J9173

== ENCOUNTER 2025-02-14 12:45 | Oncology outpatient (recurring) (ONCR) | payer MEDICAID, SELFPAY ==
--- NOTE | 2025-02-02 10:42 | ONCRAD EPV_ITS ---
Radiation Oncology Established Patient Visit Patient: Aline Barba [id number] : 1970 Age: 54 Sex: Female Dictated by: Gregorio Ferreira Date of Service: 02/02/2025 Referring Physician(s) : Dr. Verdugo Diagnosis: C34.11 - Malignant neoplasm of upper lobe, right bronchus or lung, Diagnosed 09/09/2024 (Active) C77.1 - Secondary and unspecified malignant neoplasm of intrathoracic lymph nodes, Diagnosed 09/09/2024 (Active) Radiotherapy to Date: Course: Lung 2024, Treatment Site: Lung R 2024, Ref. ID: [id number], Energy: 6X, Dose/Fx (cGy): 200, #Fx: 35 / 35, Dose Correction (cGy): 0, Total Dose Delivered (cGy): 7,000, Start Date: 11/16/2024, End Date: 01/05/2025, Elapsed Days: 50 Current History: This is a pleasant 54-year-old female who is 1 month from receiving definitive XRT. She received 7000 cGy in 35 fractions over 50 elapsed days completing this on 01/05/2025. She is completed chemotherapy and is presently on immunotherapy every 28 days with her first dose being on 01/31/[address] CAP chest on 01/16/2025 is reported to show complete resolution of the RUL and noted significant decrease lymph node mass. Patient still has shortness of breath but admits to having discontinued Symbicort. She was advised to reinstitute Symbicort. Current Medications: albuterol sulfate 90 mcg/actuation (Ventolin HFA) 1 puff inhalation DAILY alprazolam 0.5 mg PO DAILY budesonide- formoterol 160-4.5 mcg/actuation (Symbicort) 1 inh inhalation BID escitalopram oxalate 10 mg PO DAILY famotidine 20 mg PO BID hydrocodone- acetaminophen 10-325 mg 1 tab PO Q8H PRN 30 days levofloxacin 500 mg PO DAILY 7 days lidocaine HCl 2% (Lidocaine Viscous) 5 mL PO Q6H naloxone 4 mg/actuation (Narcan) 4 mg intranasal PRN PRN omeprazole 40 mg PO DAILY ondansetron HCl 4 mg PO Q8H PRN prochlorperazine maleate (Compazine) 10 mg PO Q4H PRN sucralfate 1 g (10 mL) PO Q8H PRN tramadol 50 mg PO DAILY Allergies: No Known Drug Allergy Current Complaints / Review of Systems: . Vital Signs: Performed on 02/02/2025 10:15 AM BMI - 19.882 kg/m2, Height - 60 in, Weight - 101.8 lbs, Temperature - 97.1 f, Pulse - 121 /min (high), Respiration - 17 /min, O2 Sat - 98 %, Pain - 0, Fatigue - 0 and BP - 106/ 74 mm(hg). Physical Exam: General: Alert and oriented x 3. No acute distress. HEENT: Normocephalic, atraumatic. Extraocular Movements Intact: Pupils Equal, Round, Reactive to Light and Accommodation: Sclerae anicteric. Oral cavity is clear without lesions, masses or ulcers. NECK: Supple without supraclavicular or jugular lymphadenopathy. LUNGS: Clear to auscultation bilaterally without rales, rhonchi or wheeze. HEART: Regular rate and rhythm, normal S1 and S2 without murmur, gallop or rub. MUSCULOSKELETAL: No tenderness or percussion pain over the axial skeleton, scapulae or pelvis. ABDOMEN: Soft, nontender, nondistended without masses or organomegaly. Bowell sounds are present. EXTREMITIES: No peripheral edema is identified. Limited motor and sensory examination are grossly intact and symmetric bilaterally. NEUROLOGIC: Cranial nerves II ???XII are grossly intact. Normal sensation, strength 5/5 in all extremities, normal gait, no ataxia. Performance Status: KPS 90 Lab: None pending. Pathology: Primary, c34.11 - malignant neoplasm of upper lobe, right bronchus or lung, Diagnosed 09/09/2024 (active) and Primary, c77.1 - secondary and unspecified malignant neoplasm of intrathoracic lymph nodes, Diagnosed 09/09/2024 (active) . Imaging: See HPI Impression: Resolving RUL and 4R LN disease PLAN: Continue immunotherapy Probable PET/CT in 3 months RTC in 3 months or sooner if need be Reinstitute Symbicort Discontinue smoking Signed by: 02/02/2025 10:41:03 AM <<Signature on File>> Time spent with patient: 25 MINUTES CPT Code: CPT Code:
[2025-02-14 12:58] LABS: Hematocrit 30.1 % (36-47); Hemoglobin 10.10 g/dL (11.27-16.99); Mean Corpuscular HGB Conc 33.6 g/dL (30-55); Mean Corpuscular Hemoglobin 37.1 pg (27-33); Mean Corpuscular Volume 110.7 fl (85-98); Nucleated Red Blood Cells % 0 %; Platelet Count 351 10^3/cmm (157-399); Red Blood Count 2.72 10^6/uL (3.85-5.65); White Blood Count 4.72 10^3/uL (3.29-11.43)
[2025-02-14 13:29] LABS: Alanine Aminotransferase 11 U/L (0-33); Albumin Level 4.0 g/dL (3.5-5.2); Alkaline Phosphatase 138 U/L (35-105); Anion Gap 13.1 (5-19); Aspartate Amino Transferase 18 U/L (0-32); Blood Urea Nitrogen 4 mg/dL (6-20); Calcium 9.1 mg/dL (8.5-10.5); Carbon Dioxide 25 mmol/L (22-29); Chloride 104 mmol/L (98-107); Creatinine Clr Calc Pharmacy 113.1125; Globulin 2.6 g/dL (1.3-4.6); Glucose 95 mg/dL (65-115); Osmolality Calculated 283 mOsm/kg (285-295); Potassium 4.1 mmol/L (3.5-5.1); Sodium 138 mmol/L (136-145); Thyroid Stimulating Hormone 1.61 uIU/mL (0.27-4.20); Total Protein 6.6 g/dL (6.6-8.7)
[2025-02-18 09:04] LABS: Vitamin B1 (Thiamine),Blood 112 nmol/L (78-185)
== END 2025-02-19 23:59 | disposition home or self-care (01) ==
PROVIDERS: Nurse Practitioner; PCP Family Medicine; Visit Provider Nurse Practitioner Family
DX: C34.90 Malignant neoplasm of unspecified part of unspecified bronchus or lung; R41.0 Disorientation, unspecified; Z53.9 Procedure and treatment not carried out, unspecified reason
CPT/HCPCS: 36591; 80053; 84425; 84443; 85025

== ENCOUNTER 2025-03-14 09:30 | Oncology outpatient (recurring) (ONCR) | payer MEDICAID, SELFPAY ==
[2025-02-28 09:58] LABS: Hematocrit 36.7 % (36-47); Hemoglobin 12.50 g/dL (11.27-16.99); Mean Corpuscular HGB Conc 34.1 g/dL (30-55); Mean Corpuscular Hemoglobin 37.3 pg (27-33); Mean Corpuscular Volume 109.6 fl (85-98); Nucleated Red Blood Cells % 0 %; Platelet Count 337 10^3/cmm (157-399); Red Blood Count 3.35 10^6/uL (3.85-5.65); White Blood Count 7.89 10^3/uL (3.29-11.43)
[2025-02-28 10:22] LABS: Alanine Aminotransferase 15 U/L (0-33); Albumin Level 4.4 g/dL (3.5-5.2); Alkaline Phosphatase 149 U/L (35-105); Anion Gap 11.8 (5-19); Aspartate Amino Transferase 21 U/L (0-32); Blood Urea Nitrogen 10 mg/dL (6-20); Calcium 9.8 mg/dL (8.5-10.5); Carbon Dioxide 29 mmol/L (22-29); Chloride 102 mmol/L (98-107); Creatinine Clr Calc Pharmacy 90.4900; Globulin 3.2 g/dL (1.3-4.6); Glucose 90 mg/dL (65-115); Osmolality Calculated 287 mOsm/kg (285-295); Potassium 3.8 mmol/L (3.5-5.1); Sodium 139 mmol/L (136-145); Thyroid Stimulating Hormone 2.65 uIU/mL (0.27-4.20); Total Protein 7.6 g/dL (6.6-8.7)
--- NOTE | 2025-03-06 14:30 | MR_ITS ---
WS: [id number] MRI HEAD WITH CONTRAST TECHNIQUE: Sagittal T1, T2 axial, T2 axial FLAIR, axial susceptibility weighted imaging, axial diffusion weighted images, and coronal T2 images were obtained. Pre and post-T1 axial and post T1 coronal images. ADC and FSPGR images. CLINICAL INFORMATION: new onset dizziness, off balance, brain fog COMPARISON: Outside study 09/28/2024 FINDINGS: No evidence of restricted diffusion to suggest acute ischemia. Mild small vessel changes. Mild parenchymal volume loss. No abnormal gadolinium enhancement. Normal posterior fossa. Normal vascular flow voids at the skull base. No extra- axial fluid collections. Normal dural venous sinuses. Paranasal sinuses and mastoid air cells are well aerated. Normal posterior nasopharynx. Normal optic chiasm and pituitary infundibulum. No other suspicious findings. MR/MR head wo/w con [id number] IMPRESSION: 1. No evidence of restricted diffusion to suggest acute ischemia. 2. Mild small vessel changes unchanged. Mild parenchymal volume loss. 3. No hemosiderin on the susceptibly weighted images. 4. No abnormal gadolinium enhancement. 5. No other acute findings or changes compared to previous.
[2025-03-06] MEDS: gadobenate dimeglumine 20 mL vial IV (15:01)
[2025-03-14 09:57] LABS: Hematocrit 31.9 % (36-47); Hemoglobin 10.60 g/dL (11.27-16.99); Mean Corpuscular HGB Conc 33.2 g/dL (30-55); Mean Corpuscular Hemoglobin 36.2 pg (27-33); Mean Corpuscular Volume 108.9 fl (85-98); Nucleated Red Blood Cells % 0 %; Platelet Count 258 10^3/cmm (157-399); Red Blood Count 2.93 10^6/uL (3.85-5.65); White Blood Count 8.62 10^3/uL (3.29-11.43)
[2025-03-14 10:31] VITALS: BP 109/77; PULSE 90; RESP 17; TEMP 36.3; O2SAT 96
[2025-03-14 10:40] LABS: Alanine Aminotransferase 14 U/L (0-33); Albumin Level 4.0 g/dL (3.5-5.2); Alkaline Phosphatase 127 U/L (35-105); Anion Gap 12.7 (5-19); Aspartate Amino Transferase 19 U/L (0-32); Blood Urea Nitrogen 9 mg/dL (6-20); Calcium 8.9 mg/dL (8.5-10.5); Carbon Dioxide 26 mmol/L (22-29); Chloride 100 mmol/L (98-107); Creatinine Clr Calc Pharmacy 112.6623; Globulin 2.7 g/dL (1.3-4.6); Glucose 103 mg/dL (65-115); Osmolality Calculated 279 mOsm/kg (285-295); Potassium 3.7 mmol/L (3.5-5.1); Sodium 135 mmol/L (136-145); Thyroid Stimulating Hormone 2.77 uIU/mL (0.27-4.20); Total Protein 6.7 g/dL (6.6-8.7); Vitamin B12 461 pg/mL (232-1245)
[2025-03-14] MEDS: durvalumab 1,500 MG in sodium chloride 0.9% 250 ML 280 MG IV (11:25)
[2025-03-14 12:47] VITALS: BP 97/68; PULSE 92; RESP 17; TEMP 36.4; O2SAT 93
== END 2025-03-14 23:59 | disposition home or self-care (01) ==
PROVIDERS: Nurse Practitioner; PCP Family Medicine; Visit Provider Internal Medicine Medical Oncology
DX: Z51.12 Encounter for antineoplastic immunotherapy; C34.91 Malignant neoplasm of unspecified part of right bronchus or lung; Z79.899 Other long term (current) drug therapy; Z53.9 Procedure and treatment not carried out, unspecified reason
CPT/HCPCS: 36591; 70553; 80053; 82607; 84443; 85025; 96413; A4222; J7050; J9173

== ENCOUNTER 2025-04-11 10:08 | Oncology outpatient (recurring) (ONCR) | payer MEDICAID, SELFPAY ==
--- NOTE | 2025-03-31 09:30 | PETR_ITS ---
PROCEDURE INFORMATION: Exam: PET/CT Skull Base to Mid-thigh Exam date and time: 03/31/2025 10:12 AM Age: 54 years old Clinical indication: Condition or disease; Primary cancer: Non small cell cancer; Prior surgery; Surgery date: 6+ months; Surgery type: Port; Additional info: Non small cell cancer/restaging LABS AND CLINICAL REPORTS: Glucose: 120 mg/dl Treatment strategy for malignancy (PET staging): Restaging (PS) TECHNIQUE: Imaging protocol: Following at least four-hour fasting and following the injection of radiopharmaceutical, low dose CT images were obtained. Then, PET images were obtained. Attenuation corrected images were constructed using the CT scan. Fused images of PET and CT were reviewed. The standardized uptake values (SUV) reported below are maximum values within a region of interest, expressed in gm/ml. Exam includes orbital meatal line to mid-thigh. SUV normalization method: BodyWeight Radiopharmaceutical: 11.03 mCi F-18 FDG (Fluorodeoxyglucose), IV. Time of imaging post radiopharmaceutical administration: 45 minutes Injection site: left ac COMPARISON: 1. PT PET Scan 09/28/2024 12:[address] chest w con* [id number] 01/16/2025 1:33 PM FINDINGS: Tubes, catheters and devices: Right chest port terminates near the superior cavoatrial junction. Brain: Visualized brain has normal physiologic uptake. Pharynx: No abnormal uptake. Larynx: No abnormal uptake. Lungs, pleura and trachea: No abnormal uptake. Resolved FDG avid right upper lobe/hilar mass. Nearby low-level paramediastinal linear FDG uptake just lateral to the SVC shows SUV max 2.9 on axial image 79 with mild underlying stranding compatible with inflammation/posttreatment change. Decreased right bronchial thickening. Intervally stable non FDG avid right upper lobe subsegmental atelectasis versus scarring. Heart: Normal physiologic uptake. Coronary arteries: Mild coronary artery calcification. Mediastinal space: No abnormal uptake. Liver: No abnormal uptake. Gallbladder and biliary ducts: No abnormal uptake. Cholelithiasis. Pancreas: No abnormal uptake. Spleen: No abnormal uptake. Adrenal glands: No abnormal uptake. Kidneys and ureters: Normal physiologic uptake. Stomach and bowel: No abnormal uptake. Vasculature: No abnormal uptake. Moderate systemic atherosclerotic calcification without aortic aneurysm. Lymph nodes: No abnormal uptake. No lymphadenopathy in the head, neck, chest, abdomen, pelvis, and extremities. Skeleton: No abnormal uptake in the visualized axial and appendicular skeleton. Degenerate change along the spine and acromioclavicular joints. Soft tissues: FDG uptake at bilateral neck and chest areas with underlying fat density compatible with brown fat. METRICS: Mediastinal blood pool: SUV mean 1.7 Liver uptake: SUV mean 1.9 PET/PET skull to thigh SUBS [id number] IMPRESSION: Complete response with mild posttreatment changes and resolved right upper lobe/hilar mass.
[2025-04-11] MEDS: alteplase 1 mg/mL SDV 2 mL 2 MG INTRACATH (10:50)
[2025-04-11 10:53] LABS: Hematocrit 36.7 % (36-47); Hemoglobin 12.10 g/dL (11.27-16.99); Mean Corpuscular HGB Conc 33.0 g/dL (30-55); Mean Corpuscular Hemoglobin 34.9 pg (27-33); Mean Corpuscular Volume 105.8 fl (85-98); Nucleated Red Blood Cells % 0 %; Platelet Count 227 10^3/cmm (157-399); Red Blood Count 3.47 10^6/uL (3.85-5.65); White Blood Count 5.48 10^3/uL (3.29-11.43)
[2025-04-11 11:28] LABS: Alanine Aminotransferase 13 U/L (0-33); Albumin Level 4.3 g/dL (3.5-5.2); Alkaline Phosphatase 139 U/L (35-105); Anion Gap 16.1 (5-19); Aspartate Amino Transferase 24 U/L (0-32); Blood Urea Nitrogen 8 mg/dL (6-20); Calcium 9.0 mg/dL (8.5-10.5); Carbon Dioxide 26 mmol/L (22-29); Chloride 101 mmol/L (98-107); Creatinine Clr Calc Pharmacy 112.6623; Free T4 Free Thyroxine 1.10 ng/dL (0.82-1.77); Globulin 2.3 g/dL (1.3-4.6); Glucose 104 mg/dL (65-115); Osmolality Calculated 287 mOsm/kg (285-295); Potassium 4.1 mmol/L (3.5-5.1); Sodium 139 mmol/L (136-145); Thyroid Stimulating Hormone 1.74 uIU/mL (0.27-4.20); Total Protein 6.6 g/dL (6.6-8.7)
[2025-04-11 11:59] LABS: Vitamin B12 385 pg/mL (232-1245)
[2025-04-11] MEDS: durvalumab 1,500 MG in sodium chloride 0.9% 250 ML 280 MG IV (12:34)
[2025-04-11 13:48] VITALS: BP 103/70; PULSE 73; RESP 16; TEMP 36.6; O2SAT 96
== END 2025-04-11 23:59 | disposition home or self-care (01) ==
PROVIDERS: PCP Family Medicine; Visit Provider Internal Medicine Medical Oncology
DX: Z51.12 Encounter for antineoplastic immunotherapy; C34.91 Malignant neoplasm of unspecified part of right bronchus or lung; Z79.899 Other long term (current) drug therapy; T82.9XXA Unspecified complication of cardiac and vascular prosthetic device, implant and graft, initial encounter; X58.XXXA Exposure to other specified factors, initial encounter; Z53.9 Procedure and treatment not carried out, unspecified reason
CPT/HCPCS: 36415; 36593; 78815; 80053; 82607; 82746; 83921; 84439; 84443; 84481; 85025; 96413; A4222; A9552; J2997; J7050; J9173

== ENCOUNTER 2025-05-09 09:00 | Oncology outpatient (recurring) (ONCR) | payer MEDICAID, SELFPAY ==
--- NOTE | 2025-05-09 09:39 | ONCRAD EPV_ITS ---
Radiation Oncology Established Patient Visit Patient: Aline Barba [id number] : 1970 Age: 55 Sex: Female Dictated by: Gregorio Ferreira Date of Service: 05/09/2025 Referring Physician(s) : Dr. Verdugo Diagnosis: C34.11 - Malignant neoplasm of upper lobe, right bronchus or lung, Diagnosed 09/09/2024 (Active) C77.1 - Secondary and unspecified malignant neoplasm of intrathoracic lymph nodes, Diagnosed 09/09/2024 (Active) Radiotherapy to Date: Course: Lung 2024, Treatment Site: Lung R 2024, Ref. ID: [id number], Energy: 6X, Dose/Fx (cGy): 200, #Fx: 35 / 35, Dose Correction (cGy): 0, Total Dose Delivered (cGy): 7,000, Start Date: 11/16/2024, End Date: 01/05/2025, Elapsed Days: 50 Current History: This is a 55-year-old female who is now 4 months from receiving definitive XRT. She completed XRT on 01/05/2025 Patient underwent repeat PET/CT on 03/31/2025. This showed complete response with mild posttreatment changes and resolved RUL/hilar mass. Patient has decreased her smoking but not completely off. She also has depression and has been unable to get into a therapist for 6 months. She is back to work. She is breathing much better. She will receive her immunotherapy for 1 year and is here today for her next treatment. She is on Durvalumab. Current Medications: albuterol sulfate 90 mcg/actuation (Ventolin HFA) 1 puff inhalation DAILY alprazolam 0.5 mg PO DAILY budesonide-formoterol 160-4.5 mcg/actuation (Symbicort) 1 inh inhalation BID escitalopram oxalate 10 mg PO DAILY famotidine 20 mg PO BID hydrocodone-acetaminophen 10-325 mg 1 tab PO Q8H PRN 30 days hydroxyzine HCl 10 mg PO Q12H PRN levofloxacin 500 mg PO DAILY 7 days lidocaine HCl 2% (Lidocaine Viscous) 5 mL PO Q6H naloxone 4 mg/actuation (Narcan) 4 mg intranasal PRN PRN omeprazole 40 mg PO DAILY ondansetron HCl 4 mg PO Q8H PRN prochlorperazine maleate (Compazine) 10 mg PO Q4H PRN sucralfate 1 g (10 mL) PO Q8H PRN tramadol 50 mg PO DAILY Allergies: No Known Drug Allergies Allergy (Unknown, Verified 04/11/25 11:20) Unknown Current Complaints / Review of Systems: . Vital Signs: Performed on 05/09/2025 9:20 AM BMI - 19.647 kg/m2, Height - 60 in, Weight - 100.6 lbs, Temperature - 97.3 f, Pulse - 130 /min (high), Respiration - 17 /min, O2 Sat - 97 %, Pain - 0, Fatigue - 0 and BP - 111/ 74 mm(hg). Physical Exam: General: Alert and oriented x 3. No acute distress. HEENT: Normocephalic, atraumatic. Extraocular Movements Intact: Pupils Equal, Round, Reactive to Light and Accommodation: Sclerae anicteric. Oral cavity is clear without lesions, masses or ulcers. NECK: Supple without supraclavicular or jugular lymphadenopathy. LUNGS: Clear to auscultation bilaterally without rales, rhonchi or wheeze. HEART: Regular rate and rhythm, normal S1 and S2 without murmur, gallop or rub. MUSCULOSKELETAL: No tenderness or percussion pain over the axial skeleton, scapulae or pelvis. ABDOMEN: Soft, nontender, nondistended without masses or organomegaly. Bowell sounds are present. EXTREMITIES: No peripheral edema is identified. Limited motor and sensory examination are grossly intact and symmetric bilaterally. NEUROLOGIC: Cranial nerves II ???XII are grossly intact. Normal sensation, strength 5/5 in all extremities, normal gait, no ataxia. Performance Status: KPS 90 Lab: None pending. Pathology: Primary, c34.11 - malignant neoplasm of upper lobe, right bronchus or lung, Diagnosed 09/09/2024 (active) and Primary, c77.1 - secondary and unspecified malignant neoplasm of intrathoracic lymph nodes, Diagnosed 09/09/2024 (active) . Imaging: See HPI Impression: RUL Lung Cancer with complete resolution per recent PET scan PLAN: RTC in 3 months or sooner if need be Discontinue smoking Continue immunotherapy for 1 year Signed by: 05/09/2025 9:37:56 AM <<Signature on File>> Time spent with patient: [facility] Code: CPT Code:
[2025-05-09 09:50] LABS: Hematocrit 37.2 % (36-47); Hemoglobin 12.60 g/dL (11.27-16.99); Mean Corpuscular HGB Conc 33.9 g/dL (30-55); Mean Corpuscular Hemoglobin 34.1 pg (27-33); Mean Corpuscular Volume 100.8 fl (85-98); Nucleated Red Blood Cells % 0 %; Platelet Count 261 10^3/cmm (157-399); Red Blood Count 3.69 10^6/uL (3.85-5.65); White Blood Count 5.96 10^3/uL (3.29-11.43)
[2025-05-09 10:40] LABS: Alanine Aminotransferase 14 U/L (0-33); Albumin Level 4.2 g/dL (3.5-5.2); Alkaline Phosphatase 143 U/L (35-105); Anion Gap 17.0 (5-19); Aspartate Amino Transferase 22 U/L (0-32); Blood Urea Nitrogen 7 mg/dL (6-20); Calcium 9.1 mg/dL (8.5-10.5); Carbon Dioxide 24 mmol/L (22-29); Chloride 104 mmol/L (98-107); Globulin 2.5 g/dL (1.3-4.6); Glucose 118 mg/dL (65-115); Osmolality Calculated 291 mOsm/kg (285-295); Potassium 4.0 mmol/L (3.5-5.1); Sodium 141 mmol/L (136-145); Thyroid Stimulating Hormone 2.12 uIU/mL (0.27-4.20); Total Protein 6.7 g/dL (6.6-8.7)
[2025-05-09] MEDS: durvalumab 1,500 MG in sodium chloride 0.9% 250 ML 280 MG IV (12:04)
[2025-05-09 13:03] VITALS: BP 92/63; PULSE 88; RESP 17; TEMP 36.7; O2SAT 97
== END 2025-05-09 23:59 | disposition home or self-care (01) ==
PROVIDERS: Nurse Practitioner; PCP Family Medicine; Visit Provider Internal Medicine Medical Oncology
DX: Z51.12 Encounter for antineoplastic immunotherapy (principal); C34.90 Malignant neoplasm of unspecified part of unspecified bronchus or lung; Z79.899 Other long term (current) drug therapy
CPT/HCPCS: 80053; 84443; 85025; 96413; A4222; J7050; J9173

== ENCOUNTER 2025-06-06 09:57 | Oncology outpatient (recurring) (ONCR) | payer MEDICAID, SELFPAY ==
[2025-06-06 10:21] LABS: Hematocrit 36.7 % (36-47); Hemoglobin 12.10 g/dL (11.27-16.99); Mean Corpuscular HGB Conc 33.0 g/dL (30-55); Mean Corpuscular Hemoglobin 33.2 pg (27-33); Mean Corpuscular Volume 100.8 fl (85-98); Nucleated Red Blood Cells % 0 %; Platelet Count 307 10^3/cmm (157-399); Red Blood Count 3.64 10^6/uL (3.85-5.65); White Blood Count 5.69 10^3/uL (3.29-11.43)
[2025-06-06 11:00] LABS: Alanine Aminotransferase 9 U/L (0-33); Albumin Level 4.1 g/dL (3.5-5.2); Alkaline Phosphatase 143 U/L (35-105); Anion Gap 14.3 (5-19); Aspartate Amino Transferase 17 U/L (0-32); Blood Urea Nitrogen 9 mg/dL (6-20); Calcium 9.1 mg/dL (8.5-10.5); Carbon Dioxide 26 mmol/L (22-29); Chloride 103 mmol/L (98-107); Globulin 2.6 g/dL (1.3-4.6); Glucose 92 mg/dL (65-115); Osmolality Calculated 286 mOsm/kg (285-295); Potassium 4.3 mmol/L (3.5-5.1); Sodium 139 mmol/L (136-145); Thyroid Stimulating Hormone 5.76 uIU/mL (0.27-4.20); Total Protein 6.7 g/dL (6.6-8.7)
[2025-06-06] MEDS: durvalumab 1,500 MG in sodium chloride 0.9% 250 ML 280 MG IV (12:29)
[2025-06-06 13:39] VITALS: BP 123/78; PULSE 96; TEMP 36.3; O2SAT 96
== END 2025-06-06 23:59 | disposition home or self-care (01) ==
PROVIDERS: Nurse Practitioner; PCP Family Medicine; Visit Provider Internal Medicine Medical Oncology
DX: Z51.12 Encounter for antineoplastic immunotherapy (principal); C34.91 Malignant neoplasm of unspecified part of right bronchus or lung; Z79.899 Other long term (current) drug therapy
CPT/HCPCS: 80053; 84443; 85025; 96413; A4222; J7050; J9173